=== PATIENT | male | born 1965 | race Caucasian/White ===

== ENCOUNTER 2020-03-12 03:02 | Emergency (ER) | payer OTHER ==
[~2020-03-12] VITALS: Ht 177.8 cm; Wt 111.4 kg
[2020-03-12 03:04] VITALS: BP 128/87
[2020-03-12] MEDS ORDERED: LIDOCAINE 2%,20 ML JEL.PF.APP MM ONE ×2 (03:26→03:30)
--- NOTE | 2020-03-12 03:55 | NUR ---
500 ml drained from peck
[2020-03-12] MEDS ORDERED: CEFI400C4 PO (03:56)
[2020-03-12] MEDS ORDERED: DIVA500T2 PO (04:03)
[2020-03-12] MEDS ORDERED: FLUO40CA9 PO (04:04)
--- NOTE | 2020-03-12 05:10 | NUR ---
Education provided on [facility]. Patient verbalizes understanding
== END 2020-03-12 05:29 | disposition home or self-care (01) ==
LOC: ED 05:26
DX: R33.9 Retention of urine, unspecified (principal); R10.30 Lower abdominal pain, unspecified
CPT/HCPCS: 51702; 99284

== ENCOUNTER 2020-03-12 13:48 | Emergency (ER) | payer OTHER ==
[~2020-03-12] VITALS: Ht 177.8 cm; Wt 109.6 kg
[~2020-03-12 13:48] MED LIST: CEFI400C4 PO; DIVA500T2 PO; FLUO40CA9 PO
[2020-03-12 14:18] VITALS: BP 106/59
[2020-03-12 14:42] LABS: BASOPHILS # (AUTO) 0.01 x10^3/uL (0-0.1); BASOPHILS % (AUTO) 0 % (0-1); EOSINOPHILS % (AUTO) 0 % (1-7); LYMPHOCYTES # (AUTO) 0.41 x10^3/uL (1-3.4); LYMPHOCYTES % (AUTO) 4 % (22-44); MD NO; MEAN CORPUSCULAR HEMOGLOBIN 24.3 pg (27.5-34.5); MEAN CORPUSCULAR HGB CONC 31.8 g/dL (33.2-36.2); MEAN CORPUSCULAR VOLUME 76.3 fL (81-97); MEAN PLATELET VOLUME 8.8 fL (7.4-10.4); MONOCYTES # (AUTO) 0.67 x10^3/uL (0.2-0.8); MONOCYTES % (AUTO) 6 % (2-9); NEUTROPHILS # (AUTO) 10.13 x10^3/uL (1.8-6.8); NEUTROPHILS % (AUTO) 90 % (42-75); PLATELET COUNT 165 x10^3/uL (130-400); RED BLOOD COUNT 6.08 x10^6/uL (4.38-5.82); RED CELL DISTRIBUTION WIDTH 16.3 % (9.4-14.8)
[2020-03-12 14:53] LABS: ALBUMIN 3.4 g/dL (3.4-5.0); ANION GAP 6 mmol/L (5-15); CALCIUM 8.8 mg/dL (8.5-10.1); CHLORIDE 101 mmol/L (98-107)
--- NOTE | 2020-03-12 15:10 | NUR ---
URINE SAMPLE COLLECTED.
[2020-03-12 16:02] LABS: MICROSCOPIC INDICATED
[2020-03-12] MEDS ORDERED: PHENAZOPYRIDINE 200 MG TABLET ONE (16:23)
[2020-03-12] MEDS ORDERED: PHENAZOPYRIDINE 200 MG TABLET PO ONE (16:30)
[2020-03-12] MEDS ORDERED: CEFTRIAXONE PMX 1GM/50ML 50 ML IV ONE (16:30)
[2020-03-12] MEDS ORDERED: CEFTRIAXONE 1,000 MG IM ONE (17:00)
== END 2020-03-12 17:21 ==
LOC: ED 17:15
DX: T83.518A Infection and inflammatory reaction due to other urinary catheter, initial encounter (principal); R50.9 Fever, unspecified; Z87.891 Personal history of nicotine dependence
CPT/HCPCS: 36415; 80048; 81001; 82040; 85025; 87086; 96372; 99283; J0696

== ENCOUNTER 2020-03-16 12:31 | Emergency (ER) | payer OTHER ==
[~2020-03-16] VITALS: Ht 177.8 cm; Wt 109.9 kg
[2020-03-16 12:40] VITALS: BP 119/77
--- NOTE | 2020-03-16 13:25 | NUR ---
PT INDWELLING CATHETER BALLOON ASSESSED, SHOWING INTACT BALLOON. NEW SECUREMENT DEVICE ATTACHED. CATHETER DRAINING APPROPRIATELY.
== END 2020-03-16 13:40 | disposition home or self-care (01) ==
LOC: ED 13:01
DX: Z46.6 Encounter for fitting and adjustment of urinary device (principal)
CPT/HCPCS: 51702; 99281; 99284